=== PATIENT | male | born 1960 | race Caucasian/White ===

== ENCOUNTER → 2017-07-16 | Outpatient (CLI) | payer OTHER ==
[~2017-07-16] MED LIST: ALBUTEROL17 GM INH; AMBIEN PO; DOXYCYCLINE HY100 M1 PO; ECOTRIN325 MG PO; FENOFIBRATE145 MG PO; HYDROCODON-ACE1 EAC5 PO; IBUPROFEN PO; LISINOPRIL10 MG PO; LISINOPRIL20 MG; LORTAB 7.5-5001 TAB PO; NEXIUM PO; NORCO1 TAB 10/3; PRILOSEC20 MG PO; TESSALON200 MG PO; TYLENOL325 M1 PO; ZESTRIL40 MG PO
--- NOTE | ~2017-07-16 | TM ---
[id number] NAME: PHANI CHUNG MR#: [id number] EXAM Regular Treadmill Stress Test DESCRIPTION Resting heart rate is 69, resting blood pressure is 122/82 mmHg. Baseline EKG shows normal sinus rhythm. No significant ST-T wave changes. PROCEDURE Patient was made to exercise on a standard [facility] protocol. Total exercise time is 9 minutes completing stage 3 of a standard Jacinto protocol. Test stopped because target heart rate achieved. No complaints of chest pain or extreme shortness of breath. Maximal heart rate obtained is 152 which is 93% of maximal predicted heart rate. Maximal blood pressure obtained is 130/[address]-T wave changes suggestive of ischemia. No arrhythmias noted. CONCLUSION 1. Good exercise tolerance for age. 2. There is no clinical, hemodynamic or EKG evidence of ischemia at good workload (93% of maximal predicted heart rate, 10.1 METs). 3. Normal heart rate and blood pressure response. 4. Normal regular treadmill stress test. Dictated by...
== END | disposition home or self-care (01) ==
LOC: CEKG 07:26
DX: R07.9 Chest pain, unspecified (principal); R06.02 Shortness of breath
CPT/HCPCS: 93017